=== PATIENT | male | born 1940 | race Caucasian/White ===

== ENCOUNTER → 2016-05-03 | Outpatient (CLI) | payer OTHER, MEDICARE, BC ==
[~2016-05-03] MED LIST: ACIDOPHILUS LACT1 GM PO; ARICEPT DPS5 MG PO; ASA CHILDREN'S81 MG PO; CALCIUM500 MG PO; CELEXA DPS20 MG PO; CORTEF10 MG PO; COUMADIN DPS2 MG PO; COUMADIN4 MG PO; DAKIN S TP; DEPAKOTE SPRIN125 MG PO; DEPAKOTE250 MG PO; DIFLUCAN DPS100 MG PO; DIVALPROEX SOD250 MG PO; HUMALOG100 UNIT/1 SQ; HYDROCORTISONE PO; INVANZ1 GM IV; KLOR-CON M2020 ME1 PO; LEVAQUIN DPS500 MG PO; LEVAQUIN DPS750 MG PO; LOPRESSOR DPS50 MG PO; LOTRISONE DPS45 GM TP; MAALOX DPS30 ML PO; MACRODANTIN DPS50 MG PO; MIRALAX DPS17 GM PO; MIRALAX PACKET17 GM PO; MYCAMINE100 MG IV; NAMENDA5 MG PO; NIZORAL SHAMPO120 ML TP; NOVOLIN R100 UNIT/1 SQ; NOVOLOG100 UNIT/2 SQ; PROSCAR DPS5 MG PO; QUESTRAN DPS4 GM PO; SENSI-CARE PRO113 GM TP; STOOL SOFT50 MG/5 ML PO; SULFAMYLON50 GM TP; SURFAK DPS240 MG PO; SYNTHROID DP0.025 MG PO; TYLENOL DPS325 MG PO; VANTIN100 MG PO; ZOLOFT DPS25 MG PO
== END | disposition home or self-care (01) ==
LOC: THER.SSS 15:09
DX: N39.0 Urinary tract infection, site not specified (principal)

== ENCOUNTER → 2016-05-07 | Outpatient (CLI) | payer OTHER, MEDICARE, BC | END | disposition home or self-care (01) | LOC: SSS 09:41 → THER.SSS 09:41 → RAD.S 09:41 | DX: N39.0 Urinary tract infection, site not specified (principal); Z79.2 Long term (current) use of antibiotics ==

== ENCOUNTER 2016-06-03 06:00 | Day surgery (SDC) | payer MEDICARE, BC ==
[~2016-06-03] VITALS: Ht 177.8 cm
[~2016-06-03 06:00] MED LIST changes: -CALCIUM500 MG PO; -COUMADIN4 MG PO; -DEPAKOTE SPRIN125 MG PO; -DIVALPROEX SOD250 MG PO; -LEVAQUIN DPS500 MG PO; -LEVAQUIN DPS750 MG PO; -MYCAMINE100 MG IV; -NOVOLIN R100 UNIT/1 SQ; -STOOL SOFT50 MG/5 ML PO; -SYNTHROID DP0.025 MG PO
--- NOTE | 2016-07-06 10:44 | OR ---
ADMIT: 06/03/2016 RM/LOC: [facility] MR#: [id number] [address] [place] [address] Operative/Delivery Room Report SEX: M AGE: 76 : 1940 SURGERY DATE: 06/03/2016 SURGEON: Shailesh Goodman MD PREOPERATIVE DIAGNOSIS: Right hip decubitus ulcer. POSTOPERATIVE DIAGNOSIS: Right hip decubitus ulcer. PROCEDURE PERFORMED: Debridement of right hip decubitus ulcer, which is 3 x 3 cm x 2 cm deep debridement including skin, subcutaneous tissue, and fascia. ANESTHESIA: Sedation and local. ESTIMATED BLOOD LOSS: Less than 5 mL. DESCRIPTION OF PROCEDURE: After appropriate informed consent was obtained, the patient was brought to the operating room. His right hip was prepped and draped in a sterile fashion. A just whiff of IV sedation was given, we really wanted light on the sedation, Anesthesia provided this. I then injected 1% lidocaine with epinephrine in the skin deep tissues. Using cautery, I was able to debride back the skin that had kind of folded over and was covering over the depths of his wound. The skin and subcutaneous tissue were debrided back to good healthy skin margins that were bleeding. All the deep tissues and fascia that was devitalized was debrided. This left me at the end of the procedure with a 3 cm x 3 cm diameter wound that was 2 cm deep. All the tissue appeared healthy at the end of the debridement. The wound was then packed with Betadine-soaked Kerlix and ABD dressings placed over that and held in place with tape. He tolerated the procedure well and was taken to the recovery room in stable condition. Shailesh Goodman MD/ nathalia JOB #: [id number] CC: Shailesh Goodman, Attending Physician Oracio Shen, Family Physician Oracio Shen MD
--- NOTE | 2016-07-06 10:44 | OR ---
ADMIT: 06/03/2016 RM/LOC: [facility] MR#: [id number] [address] [place] [address] Operative/Delivery Room Report SEX: M AGE: 76 : 1940 SURGERY DATE: 06/03/2016 SURGEON: Shailesh Goodman MD ADDENDUM: This was a stage IV right hip decubitus ulcer. Shailesh Goodman MD/ modl JOB #: [id number] CC: Shailesh Goodman MD, Attending Physician Oracio Shen MD, Family Physician
[2016-10-01] MEDS ORDERED: TYLENOL DPS325 MG PO (14:06)
[2016-10-01] MEDS ORDERED: COUMADIN4 MG PO (14:07)
[2016-10-01] MEDS ORDERED: ARICEPT DPS5 MG PO (14:07)
[2016-10-01] MEDS ORDERED: CELEXA DPS20 MG PO (14:07)
[2016-10-01] MEDS ORDERED: CORTEF10 MG PO (14:07)
[2016-10-01] MEDS ORDERED: ASA CHILDREN'S81 MG PO (14:07)
[2016-10-01] MEDS ORDERED: DIVALPROEX SOD250 MG PO (14:07)
[2016-10-01] MEDS ORDERED: MIRALAX PACKET17 GM PO (14:08)
[2016-10-01] MEDS ORDERED: ACIDOPHILUS LACT1 GM PO (14:08)
[2016-10-01] MEDS ORDERED: NIZORAL SHAMPO120 ML TP (14:08)
[2016-10-01] MEDS ORDERED: NAMENDA5 MG PO (14:08)
[2016-10-01] MEDS ORDERED: LOPRESSOR DPS50 MG PO (14:08)
[2016-10-01] MEDS ORDERED: SURFAK DPS240 MG PO (14:09)
[2016-10-01] MEDS ORDERED: QUESTRAN DPS4 GM PO (14:09)
[2016-10-01] MEDS ORDERED: KLOR-CON M2020 ME1 PO (14:09)
[2016-10-01] MEDS ORDERED: SYNTHROID DP0.025 MG PO (14:09)
[2016-10-01] MEDS ORDERED: NOVOLIN R100 UNIT/1 SQ (14:10)
[2016-10-01] MEDS ORDERED: LEVAQUIN DPS500 MG PO (14:10)
[2016-10-25] MEDS ORDERED: LEVAQUIN DPS750 MG PO (15:37)
[2016-10-25] MEDS ORDERED: CALCIUM500 MG PO (15:37)
[2016-10-25] MEDS ORDERED: STOOL SOFT50 MG/5 ML PO (15:39)
[2016-10-25] MEDS ORDERED: DEPAKOTE SPRIN125 MG PO (15:40)
[2016-10-25] MEDS ORDERED: MYCAMINE100 MG IV (15:41)
== END 2016-06-03 11:00 | disposition home or self-care (01) ==
LOC: SSS 06:00
PROC: 0JBL0ZZ Excision of Right Upper Leg Subcutaneous Tissue and Fascia, Open Approach (ICD-10-PCS; principal; 2016-06-03)
DX: L89.219 Pressure ulcer of right hip, unspecified stage (principal); I10 Essential (primary) hypertension; E11.9 Type 2 diabetes mellitus without complications; I48.2 Chronic atrial fibrillation; Z79.899 Other long term (current) drug therapy

== ENCOUNTER 2016-06-05 13:40 | Emergency (ER) | payer MEDICARE, BC ==
--- NOTE | 2016-06-06 15:40 | ER ---
ADMIT: 06/05/2016 RM/LOC: ER [facility] MR#: [id number] [address] [address] [place] [address] Emergency Room Report SEX: M AGE: 76 : 1940 DATE: 06/05/2016 ADDENDUM: A 76-year-old white male, demented, coming in with second degree pressure sore right hip. He was seen by Dr. Goodman on Monday. He unrouged this, cleaned it out and packed it. It does not get into the muscle or fascia at this time. Sent over from the residential because it was bleeding when they pulled the packing out which they had been changing. He is on Lovenox because he had a clot in the past and atrial fibrillation. Owing to his severe dementia, his decubitus that needs to be packed daily. I spoke with Dr. Cintron and Dr. Goodman we are going to stop the aspirin, the Lovenox. I did end up cauterize seeing the edge of the wound, which seemed to be where it was bleeding from repack, did discharge him back to [facility]. I also spoke with the , she is in agreement with this. We will stop the anticoagulation and unless primary and sees the need for. CONDITION ON DISCHARGE: Fair. Oracio Costa MD/ nathalia JOB #: [id number] CC: Oracio Costa MD, Attending Physician Oracio Shen MD, Family Physician
[2016-10-01] MEDS ORDERED: TYLENOL DPS325 MG PO (14:06)
[2016-10-01] MEDS ORDERED: ARICEPT DPS5 MG PO (14:07)
[2016-10-01] MEDS ORDERED: CELEXA DPS20 MG PO (14:07)
[2016-10-01] MEDS ORDERED: CORTEF10 MG PO (14:07)
[2016-10-01] MEDS ORDERED: DIVALPROEX SOD250 MG PO (14:07)
[2016-10-01] MEDS ORDERED: COUMADIN4 MG PO (14:07)
[2016-10-01] MEDS ORDERED: ASA CHILDREN'S81 MG PO (14:07)
[2016-10-01] MEDS ORDERED: NIZORAL SHAMPO120 ML TP (14:08)
[2016-10-01] MEDS ORDERED: MIRALAX PACKET17 GM PO (14:08)
[2016-10-01] MEDS ORDERED: NAMENDA5 MG PO (14:08)
[2016-10-01] MEDS ORDERED: ACIDOPHILUS LACT1 GM PO (14:08)
[2016-10-01] MEDS ORDERED: LOPRESSOR DPS50 MG PO (14:08)
[2016-10-01] MEDS ORDERED: QUESTRAN DPS4 GM PO (14:09)
[2016-10-01] MEDS ORDERED: KLOR-CON M2020 ME1 PO (14:09)
[2016-10-01] MEDS ORDERED: SURFAK DPS240 MG PO (14:09)
[2016-10-01] MEDS ORDERED: SYNTHROID DP0.025 MG PO (14:09)
[2016-10-01] MEDS ORDERED: LEVAQUIN DPS500 MG PO (14:10)
[2016-10-01] MEDS ORDERED: NOVOLIN R100 UNIT/1 SQ (14:10)
[2016-10-25] MEDS ORDERED: CALCIUM500 MG PO (15:37)
[2016-10-25] MEDS ORDERED: LEVAQUIN DPS750 MG PO (15:37)
[2016-10-25] MEDS ORDERED: STOOL SOFT50 MG/5 ML PO (15:39)
[2016-10-25] MEDS ORDERED: DEPAKOTE SPRIN125 MG PO (15:40)
[2016-10-25] MEDS ORDERED: MYCAMINE100 MG IV (15:41)
== END 2016-06-05 15:20 | disposition home or self-care (01) ==
LOC: ER 13:40
PROC: 2W25X4Z Dressing of Back using Bandage (ICD-10-PCS; principal; 2016-06-05)
DX: L89.219 Pressure ulcer of right hip, unspecified stage (principal); F03.90 Unspecified dementia, unspecified severity, without behavioral disturbance, psychotic disturbance, mood disturbance, and anxiety; D68.318 Other hemorrhagic disorder due to intrinsic circulating anticoagulants, antibodies, or inhibitors; E11.9 Type 2 diabetes mellitus without complications; F32.9 Major depressive disorder, single episode, unspecified; Z79.899 Other long term (current) drug therapy